=== PATIENT | male | born 1975 ===

== ENCOUNTER 2020-09-14 13:01 | Inpatient (IN) | payer SELFPAY ==
[2020-09-14] MEDS ORDERED: Senokot S 8.6-50 MG TAB PO PRN (17:02)
[2020-09-14] MEDS ORDERED: Guaifenesin DM 100-10/5 ML UDCUP PO PRN (17:02)
[2020-09-14] MEDS ORDERED: Acetaminophen 325 MG TAB PO PRN (17:02)
[2020-09-14] MEDS ORDERED: Ondansetron PF 4 MG/2 ML Vial IVP PRN (17:02)
[2020-09-14] MEDS ORDERED: Pharmacy to Dose REMDESIVIR IVPB PRN (17:03)
[2020-09-14 17:26] VITALS: BMI 43.2
[2020-09-14 19:52] LABS: ALT (SGPT) 48 U/L (8-55); AST (SGOT) 42 U/L (5-34); Albumin 3.8 g/dL (3.5-5.0); Alkaline Phosphatase 82 U/L (40-110); Bilirubin, Direct 0.3 mg/dL (0.1-0.3); Bilirubin, Total 0.6 mg/dL (0.2-1.2); Protein, Total 7.6 g/dL (6.0-8.3)
[2020-09-14] MEDS: Famotidine 20 MG TAB PO SCH (19:59)
[2020-09-14] MEDS: Enoxaparin Sodium 40 MG/0.4 ML SYRINGE SC SCH (20:00)
--- NOTE | 2020-09-14 20:00 | HP ---
CHIEF COMPLAINT: Shortness of breath. HISTORY OF PRESENT ILLNESS: The patient is a 44-year-old male, with no past medical history, who presents to the hospital actually in [place] with worsening shortness of breath. The patient started becoming symptomatic on September 10. He came into the ER today, got tested, was COVID positive. The patient at this time requires 2 to 3 L of nasal cannula. He was noted to be hypoxic at 84% on room air. At this time, due to no beds, he was transferred here for further evaluation. PAST MEDICAL HISTORY: He denies. PAST SURGICAL HISTORY: He denies. MEDICATIONS: Does not take any medications. ALLERGIES: NO KNOWN DRUG ALLERGIES. REVIEW OF SYSTEMS: All negative except for the ones mentioned above in the HPI. FAMILY HISTORY: No history of heart disease or stroke. SOCIAL HISTORY: The patient denies any smoking, any alcohol use, or any drug use. He is a full code. Lives with his , who was also diagnosed with COVID. PHYSICAL EXAMINATION: VITAL SIGNS: Temperature 98.8, heart rate 97, respiratory rate 26, oxygen saturation 98% on 2 L, and blood pressure 122/74. GENERAL: He is awake, alert, and oriented x3. Does not appear in distress. Appears ill, tachypneic. CV: S1 and S2 present. No murmurs, rubs, or gallops. LUNGS: Some crackles to bilateral lower bases. ABDOMEN: Soft and nontender. Bowel sounds are present x2. EXTREMITIES: No edema. Pedal pulses are present x2. NEUROVASCULAR: No focal deficits noted. SKIN: No cuts, lesions, or bruises noted. LABORATORY DATA: He has had a CTA, which is on a disk and I am unable to read it and also had a chest x-ray, which per the ER doctor said, there was infiltrates that were noted. The rest of the labs WBCs of 10.1, hemoglobin of 14.7, hematocrit of 42.5, and his platelets are 319. Sodium of 135, potassium of 3.3, BUN of 7, creatinine of 0.79, and glucose of 209. His AST is 36. His ALT is 42. His albumin is 2.9. ASSESSMENT AND PLAN: The patient is a very pleasant 44-year-old male, who presents to the hospital with shortness of breath. 1. Acute hypoxic respiratory failure, most likely secondary to COVID. I will start the patient on Decadron. He received Decadron in the ER 10 mg. We will start 6 mg. We will also start him on vitamin D, zinc, and vitamin C. We will do p.r.n. albuterol inhaler. We will start the patient on deep venous thrombosis prophylaxis, Lovenox b.i.d. 2. Obesity. The patient educated on diet, exercise, and weight loss. 3. Mild elevated AST. We will continue to monitor. 4. Deep venous thrombosis prophylaxis. The patient on Lovenox. Job ID: [id number]
[2020-09-14] MEDS ORDERED: REMDESIVIR (EUA) 200 MG in Sodium Chloride 0.9% 250 ML 210 ML IV SCH (20:15)
[2020-09-15 05:10] LABS: #Lymphocytes 1.1 thou/uL (1.20-3.40); #Monocytes 0.6 thou/uL (0.11-0.59); #Neutrophils 7.2 thou/uL (1.40-6.50); %Basophils 0.3 % (0.0-1.0); %Eosinophils 0.3 % (0.0-10.0); %Lymphocytes 12.6 % (21.0-51.0); %Monocytes 6.7 % (0.0-10.0); %Neutrophils 80.1 % (42.0-75.0); Hemoglobin 14.3 g/dL (14.0-18.0); Mean Corpuscular HGB CONC 32.6 g/dL (32.0-36.0); Mean Corpuscular Hemoglobin 29.8 pg (27.0-31.0); Mean Corpuscular Volume 91.4 fL (78.0-98.0); Mean Platelet Volume 7.4 fL (7.4-10.4); Platelet Count 377 thou/uL (130-400); RBC Distribution Width 12.4 % (11.5-14.5); Red Blood Cell (RBC) Count 4.82 mill/uL (4.70-6.10)
[2020-09-15 05:43] LABS: ALT (SGPT) 50 U/L (8-55); AST (SGOT) 37 U/L (5-34); Albumin 3.5 g/dL (3.5-5.0); Alkaline Phosphatase 72 U/L (40-110); Anion Gap 13 mmol/L (10-20); BUN (Urea Nitrogen) 12 mg/dL (8.9-20.6); Bilirubin, Total 0.3 mg/dL (0.2-1.2); Calc. Creatinine Clearance 213 mL/min (70-130); Carbon Dioxide 29 mmol/L (22-29); Chloride 99 mmol/L (98-107); Globulin 4.2 g/dL (2.4-3.5); Glucose 257 mg/dL (70-105); Potassium 4.1 mmol/L (3.5-5.1); Protein, Total 7.7 g/dL (6.0-8.3); Sodium 137 mmol/L (136-145)
[2020-09-15] MEDS: Mometasone 100 MCG/Formoterol 5 MCG 120 PUFF INHALER INH SCH ×2 (06:31→17:24)
[2020-09-15] MEDS ORDERED: Dextrose 50% Abboject 50 ML SYRINGE SLOW IVP PRN (07:59)
[2020-09-15] MEDS ORDERED: Dextrose 5% in Water 1,000 ML IV PRN (07:59)
[2020-09-15] MEDS: Enoxaparin Sodium 40 MG/0.4 ML SYRINGE SC SCH ×2 (08:46→21:10)
[2020-09-15] MEDS: Famotidine 20 MG TAB PO SCH ×2 (08:47→21:10)
[2020-09-15] MEDS: Zinc Sulfate 220 MG CAP PO SCH (08:47)
[2020-09-15] MEDS: Cholecalciferol (Vitamin D3) 400 UNITS TAB PO SCH (08:47)
[2020-09-15] MEDS: Ascorbic Acid 500 mg Chewable Tablet PO SCH (08:47)
[2020-09-15] MEDS: Dexamethasone 4 mg/ml Vial SLOW IVP SCH (08:47)
--- NOTE | 2020-09-15 09:04 | RAD ---
PORTABLE CHEST 1 VIEW: Date: 09/15/2020 Time: 0809 hours HISTORY: Shortness of breath. FINDINGS/IMPRESSION: The heart size is normal. The aorta is tortuous. Patchy opacities are seen in the lung sagastume bilater ally. No pneumothoraces or large effusions are noted. IMPRESSION: Findings are suspicious for pneumonia. POS: OFF
[2020-09-15] MEDS: HumaLOG 300 UNITS/3 ML VIAL SC PRN ×3 (13:23→21:43)
[2020-09-15] MEDS: REMDESIVIR (EUA) 100 MG in Sodium Chloride 0.9% 250 ML 230 ML IV SCH (21:10)
--- NOTE | 2020-09-15 22:17 | PDOC.HOSPP ---
- Subjective Encounter Date: 09/15/20 Encounter Time: 15:00 Subjective: Patient up in bed states he feels much better today - Objective Vital Signs & Weight: Vital Signs (12 hours) Temp Pulse Resp BP Pulse Ox 09/15/20 19:40 97.5 F L 89 28 H 109/66 97 09/15/20 16:00 98.4 F 92 30 H 110/64 99 09/15/20 12:00 97.9 F 84 28 H 108/59 L 99 Weight Weight 310 lb I&O: 09/14/20 09/15/20 09/16/20 06:59 06:59 06:59 Intake Total 1057 1080 Output Total 970 675 Balance 87 405 Result Diagrams: 09/15/20 04:46 09/15/20 04:46 Additional Labs: Accuchecks 09/15/20 09/15/20 09/15/20 21:18 16:43 12:30 POC Glucose 248 H 285 H 268 H Hospitalist ROS - Review of Systems Cardiovascular: denies: chest pain, palpitations, orthopnea, paroxysmal noc. dyspnea, edema, light headedness, other Gastrointestinal: denies: nausea, vomiting, abdominal pain, diarrhea, constipation, melena, hematochezia, other Genitourinary: denies: dysuria, frequency, incontinence, hematuria, retention, other - Medication Medications: Active Medications Generic Name Dose Route Start Last Admin Trade Name Freq PRN Reason Stop Dose Admin Acetaminophen 650 mg 09/14/20 17:02 09/15/20 03:14 Acetaminophen 325 Mg Tab PO 650 mg Q8H PRN Administration Headache/Fever/Mild Pain (1-3) Ascorbic Acid 500 mg 09/15/20 09:00 09/15/20 08:47 Ascorbic Acid 500 Mg Chewable Tablet PO 500 mg DAILY SALENA Administration Cholecalciferol 400 units 09/15/20 09:00 09/15/20 08:47 Cholecalciferol (Vitamin D3) 400 Units Tab PO 400 units DAILY SALENA Administration Dexamethasone 6 mg 09/15/20 09:00 09/15/20 08:47 Dexamethasone 4 Mg/Ml Vial SLOW IVP 6 mg DAILY SALENA Administration Enoxaparin Sodium 40 mg 09/14/20 21:00 09/15/20 21:10 Enoxaparin Sodium 40 Mg/0.4 Ml Syringe SC 40 mg BID SALENA Administration Famotidine 20 mg 09/14/20 21:00 09/15/20 21:10 Famotidine 20 Mg Tab PO 20 mg BID SALENA Administration Remdesivir 100 mg/ Sodium 250 mls @ 250 mls/hr 09/15/20 20:00 09/15/20 21:10 Chloride IV 09/18/20 20:59 250 mls 2000 SALENA Administration Insulin Human Lispro 0 units 09/15/20 07:59 09/15/20 17:23 Humalog 300 Units/3 Ml Vial SC 4 unit .MILD SLIDING SCALE PRN Administration Mild Correctional Scale Insulin Human Lispro 0 units 09/15/20 19:20 09/15/20 21:43 Humalog 300 Units/3 Ml Vial SC 2 unit .BEDTIME SLIDING SC PRN Administration Bedtime Correctional Scale Mometasone Furoate/Formoterol Fumar 1 puff 09/15/20 06:30 09/15/20 17:24 Mometasone 100 Mcg/Formoterol 5 Mcg 120 Puff Inhaler INH 1 puff BID-RT SALENA Administration Zinc Sulfate 220 mg 09/15/20 09:00 09/15/20 08:47 Zinc Sulfate 220 Mg Cap PO 220 mg DAILY SALENA Administration - Exam Neck: negative: supple, symmetric, no JVD, no thyromegaly, no lymphadenopathy, no carotid bruit, JVD Heart: negative: RRR, no murmur, no gallops, no rubs, normal peripheral pulses, irregular, diminshed peripheral pulses, murmur present, II/IV, III/IV Respiratory: negative: CTAB, no wheezes, no rales, no ronchi, normal chest expansion, no tachypnea, normal percussion, rales, rhonchi, tachypneic, wheezes Gastrointestinal: negative: soft, non-tender, non-distended, normal bowel sounds, no palpable masses, no hepatomegaly, no splenomegaly, no bruit, no guarding, no rigidity, tender to palpation, distended, diminished bowl sounds, voluntary guarding Hosp A/P (1) Acute respiratory failure with hypoxia Code(s): J96.01 - ACUTE RESPIRATORY FAILURE WITH HYPOXIA Status: Acute (2) COVID-19 Code(s): U07.1 - COVID-19 Status: Acute (3) Obesity Code(s): E66.9 - OBESITY, UNSPECIFIED Status: Acute (4) Sleep apnea Code(s): G47.30 - SLEEP APNEA, UNSPECIFIED Status: Acute - Plan We will continue remdesivir day 2. ID consulted. We will continue steroids, DVT prophylaxis and inhalers. Patient currently on 4 L satting 95-96%. We will continue to check inflammatory markers.
[2020-09-16] MEDS: Mometasone 100 MCG/Formoterol 5 MCG 120 PUFF INHALER INH SCH ×2 (06:11→18:26)
[2020-09-16] MEDS: HumaLOG 300 UNITS/3 ML VIAL SC PRN ×4 (06:20→21:54)
[2020-09-16] MEDS: Cholecalciferol (Vitamin D3) 400 UNITS TAB PO SCH (08:23)
[2020-09-16] MEDS: Ascorbic Acid 500 mg Chewable Tablet PO SCH (08:23)
[2020-09-16] MEDS: Dexamethasone 4 mg/ml Vial SLOW IVP SCH (08:23)
[2020-09-16] MEDS: Famotidine 20 MG TAB PO SCH ×2 (08:25→19:56)
[2020-09-16] MEDS: Enoxaparin Sodium 40 MG/0.4 ML SYRINGE SC SCH ×2 (08:25→19:56)
[2020-09-16] MEDS: Zinc Sulfate 220 MG CAP PO SCH (08:26)
[2020-09-16 11:23] LABS: ALT (SGPT) 51 U/L (8-55); AST (SGOT) 25 U/L (5-34); Albumin 3.5 g/dL (3.5-5.0); Alkaline Phosphatase 67 U/L (40-110); Anion Gap 15 mmol/L (10-20); BUN (Urea Nitrogen) 20 mg/dL (8.9-20.6); Bilirubin, Total 0.3 mg/dL (0.2-1.2); CRP (Inflammatory) 6.53 mg/dL (= or < 0.5); Calc. Creatinine Clearance 202 mL/min (70-130); Calcium 8.7 mg/dL (7.8-10.44); Carbon Dioxide 29 mmol/L (22-29); Chloride 101 mmol/L (98-107); Glucose 323 mg/dL (70-105); Potassium 3.7 mmol/L (3.5-5.1); Protein, Total 7.5 g/dL (6.0-8.3); Sodium 141 mmol/L (136-145)
--- NOTE | 2020-09-16 16:22 | CON ---
DATE OF CONSULTATION: 09/16/2020 REASON FOR CONSULTATION: COVID pneumonia. HISTORY OF PRESENT ILLNESS: A 44-year-old with history of obesity, who has been sick with fever and progressive respiratory symptoms since Thursday, about 7 days since before I saw him. He was admitted at the 5th day of his illness and started on Decadron and remdesivir after he tested positive for COVID. He is feeling better now. He has no headaches, visual symptoms, sore throat, odynophagia, or dysphagia. No anosmia. Some cough. No chest pain or abdominal pain. No diarrhea or genitourinary symptoms. MEDICAL HISTORY: Negative. SURGICAL HISTORY: Negative. ALLERGIES: NONE. CURRENT MEDICATIONS: 1. Vitamin D. 2. Decadron. 3. Lovenox twice a day. 4. Insulin. 5. Remdesivir. FAMILY HISTORY: Noncontributory except for COVID-19, his pretty much around the same time, but she is doing well. He seems to have recovered already. He lives in [place], though had to come here because they have no beds in [place]. PHYSICAL EXAMINATION: VITAL SIGNS: His temperature is normal, blood pressure 120/73, respiratory rate 22, and O2 saturation now is 100% with 3 L. He does not desaturate much after exertion. HEENT: Ocular movements conjugate. Oral cavity normal. LUNGS: Really fairly clear breath sounds. HEART: S1 and S2. Regular rate. ABDOMEN: Soft, not distended or tender. EXTREMITIES: No edema. No joint inflammatory activity. Pulses excellent lower extremities. Moves all extremities equally. LABORATORY STUDIES: Sodium 141, creatinine 0.94. Liver profile; CRP 6.53, transaminases normal, bilirubin normal. Chest x-ray; diffuse bilateral infiltrates, typical of covert 19. ASSESSMENT: Obesity with SARS-CoV-2 pneumonia, moderate to severe. DISCUSSION: The patient going into his 2nd week of illness, so there is an opportunity for deterioration going forward, but hopefully with the Decadron and remdesivir will shorten hospital stay, seems to have turned around pretty quickly and lung sounds very good right now, so guardedly optimistic about his clinical course here in the hospital. Job ID: [id number]
[2020-09-16] MEDS: REMDESIVIR (EUA) 100 MG in Sodium Chloride 0.9% 250 ML 230 ML IV SCH (19:57)
[2020-09-17 05:11] LABS: #Basophils 0.1 thou/uL (0.0-0.2); #Eosinphils 0.1 thou/uL (0.0-0.7); #Lymphocytes 2.7 thou/uL (1.20-3.40); #Monocytes 1.2 thou/uL (0.11-0.59); #Neutrophils 9.1 thou/uL (1.40-6.50); %Basophils 0.4 % (0.0-1.0); %Eosinophils 0.8 % (0.0-10.0); %Lymphocytes 20.4 % (21.0-51.0); %Monocytes 8.9 % (0.0-10.0); %Neutrophils 69.5 % (42.0-75.0); Hemoglobin 14.6 g/dL (14.0-18.0); Mean Corpuscular HGB CONC 33.6 g/dL (32.0-36.0); Mean Corpuscular Hemoglobin 30.9 pg (27.0-31.0); Mean Corpuscular Volume 91.9 fL (78.0-98.0); Mean Platelet Volume 7.4 fL (7.4-10.4); Platelet Count 501 thou/uL (130-400); RBC Distribution Width 12.6 % (11.5-14.5); Red Blood Cell (RBC) Count 4.71 mill/uL (4.70-6.10)
[2020-09-17 05:30] LABS: ALT (SGPT) 50 U/L (8-55); AST (SGOT) 24 U/L (5-34); Albumin 3.2 g/dL (3.5-5.0); Alkaline Phosphatase 63 U/L (40-110); Anion Gap 14 mmol/L (10-20); BUN (Urea Nitrogen) 20 mg/dL (8.9-20.6); Bilirubin, Total 0.3 mg/dL (0.2-1.2); Calc. Creatinine Clearance 223 mL/min (70-130); Calcium 8.4 mg/dL (7.8-10.44); Carbon Dioxide 30 mmol/L (22-29); Chloride 102 mmol/L (98-107); Globulin 3.6 g/dL (2.4-3.5); Glucose 162 mg/dL (70-105); Protein, Total 6.8 g/dL (6.0-8.3); Sodium 142 mmol/L (136-145)
[2020-09-17] MEDS: Mometasone 100 MCG/Formoterol 5 MCG 120 PUFF INHALER INH SCH ×2 (06:22→17:17)
[2020-09-17] MEDS: HumaLOG 300 UNITS/3 ML VIAL SC PRN ×3 (06:22→17:16)
[2020-09-17] MEDS: Enoxaparin Sodium 40 MG/0.4 ML SYRINGE SC SCH ×2 (07:25→21:53)
[2020-09-17] MEDS: Zinc Sulfate 220 MG CAP PO SCH (07:26)
[2020-09-17] MEDS: Dexamethasone 4 mg/ml Vial SLOW IVP SCH (07:26)
[2020-09-17] MEDS: Famotidine 20 MG TAB PO SCH ×2 (07:26→21:53)
[2020-09-17] MEDS: Cholecalciferol (Vitamin D3) 400 UNITS TAB PO SCH (07:26)
[2020-09-17] MEDS: Ascorbic Acid 500 mg Chewable Tablet PO SCH (07:26)
--- NOTE | 2020-09-17 09:03 | PDOC.HOSPP ---
- Subjective Encounter Date: 09/16/20 Encounter Time: 11:45 Subjective: Patient up in bed states he feels much better. - Objective Vital Signs & Weight: Vital Signs (12 hours) Temp Pulse Resp BP BP Pulse Ox 09/17/20 07:16 96.8 F L 79 24 H 114/64 92 L 09/17/20 03:12 97.0 F L 70 16 116/71 96 09/16/20 23:20 97.0 F L 82 18 116/73 100 Weight Weight 310 lb I&O: 09/16/20 09/17/20 09/18/20 06:59 06:59 06:59 Intake Total 1650 1580 Output Total 675 Balance 975 1580 Result Diagrams: 09/17/20 04:49 09/17/20 04:49 Additional Labs: Accuchecks 09/16/20 09/16/20 09/16/20 21:52 16:16 10:44 POC Glucose 221 H 297 H 301 H Hospitalist ROS - Review of Systems Respiratory: denies: cough, dry, shortness of breath, hemoptysis, SOB with excertion, pleuritic pain, sputum, wheezing, other Cardiovascular: denies: chest pain, palpitations, orthopnea, paroxysmal noc. dyspnea, edema, light headedness, other Gastrointestinal: denies: nausea, vomiting, abdominal pain, diarrhea, constipation, melena, hematochezia, other - Medication Medications: Active Medications Generic Name Dose Route Start Last Admin Trade Name Freq PRN Reason Stop Dose Admin Acetaminophen 650 mg 09/14/20 17:02 09/15/20 03:14 Acetaminophen 325 Mg Tab PO 650 mg Q8H PRN Administration Headache/Fever/Mild Pain (1-3) Ascorbic Acid 500 mg 09/15/20 09:00 09/17/20 07:26 Ascorbic Acid 500 Mg Chewable Tablet PO 500 mg DAILY SALENA Administration Cholecalciferol 400 units 09/15/20 09:00 09/17/20 07:26 Cholecalciferol (Vitamin D3) 400 Units Tab PO 400 units DAILY SALENA Administration Dexamethasone 6 mg 09/15/20 09:00 09/17/20 07:26 Dexamethasone 4 Mg/Ml Vial SLOW IVP 6 mg DAILY SALENA Administration Enoxaparin Sodium 40 mg 09/14/20 21:00 09/17/20 07:25 Enoxaparin Sodium 40 Mg/0.4 Ml Syringe SC 40 mg BID SALENA Administration Famotidine 20 mg 09/14/20 21:00 09/17/20 07:26 Famotidine 20 Mg Tab PO 20 mg BID SALENA Administration Remdesivir 100 mg/ Sodium 250 mls @ 250 mls/hr 09/15/20 20:00 09/16/20 19:57 Chloride IV 09/18/20 20:59 250 mls 2000 SALENA Administration Insulin Human Lispro 0 units 09/15/20 07:59 09/17/20 06:22 Humalog 300 Units/3 Ml Vial SC 2 unit .MILD SLIDING SCALE PRN Administration Mild Correctional Scale Insulin Human Lispro 0 units 09/15/20 19:20 09/16/20 21:54 Humalog 300 Units/3 Ml Vial SC 2 unit .BEDTIME SLIDING SC PRN Administration Bedtime Correctional Scale Mometasone Furoate/Formoterol Fumar 1 puff 09/15/20 06:30 09/17/20 06:22 Mometasone 100 Mcg/Formoterol 5 Mcg 120 Puff Inhaler INH 1 puff BID-RT SALENA Administration Zinc Sulfate 220 mg 09/15/20 09:00 09/17/20 07:26 Zinc Sulfate 220 Mg Cap PO 220 mg DAILY SALENA Administration - Exam Neck: negative: supple, symmetric, no JVD, no thyromegaly, no lymphadenopathy, no carotid bruit, JVD Heart: negative: RRR, no murmur, no gallops, no rubs, normal peripheral pulses, irregular, diminshed peripheral pulses, murmur present, II/IV, III/IV Respiratory: negative: CTAB, no wheezes, no rales, no ronchi, normal chest expansion, no tachypnea, normal percussion, rales, rhonchi, tachypneic, wheezes Gastrointestinal: negative: soft, non-tender, non-distended, normal bowel sounds, no palpable masses, no hepatomegaly, no splenomegaly, no bruit, no guar ding, no rigidity, tender to palpation, distended, diminished bowl sounds, voluntary guarding Hosp A/P (1) Acute respiratory failure with hypoxia Code(s): J96.01 - ACUTE RESPIRATORY FAILURE WITH HYPOXIA Status: Acute (2) COVID-19 Code(s): U07.1 - COVID-19 Status: Acute (3) Obesity Code(s): E66.9 - OBESITY, UNSPECIFIED Status: Acute (4) Sleep apnea Code(s): G47.30 - SLEEP APNEA, UNSPECIFIED Status: Acute - Plan We will continue remdesivir day 2. ID consulted. We will continue steroids, DVT prophylaxis and inhalers. Patient currently on 4 L satting 95-96%. We will continue to check inflammatory markers. 09/16 today is day 3 of remdesivir. Patient doing well. We will continue current treatment. Hopefully will start weaning the oxygen down.
--- NOTE | 2020-09-17 16:09 | PDOC.HOSPP ---
- Subjective Encounter Date: 09/17/20 Encounter Time: 10:30 Subjective: pt up in bed no complains - Objective Vital Signs & Weight: Vital Signs (12 hours) Temp Pulse Resp BP Pulse Ox 09/17/20 11:08 97.0 F L 75 22 H 107/67 98 09/17/20 07:16 96.8 F L 79 24 H 114/64 92 L Weight Weight 310 lb I&O: 09/16/20 09/17/20 09/18/20 06:59 06:59 06:59 Intake Total 1650 1580 Output Total 675 Balance 975 1580 Result Diagrams: 09/17/20 04:49 09/17/20 04:49 Additional Labs: Accuchecks 09/17/20 09/16/20 09/16/20 10:42 21:52 16:16 POC Glucose 275 H 221 H 297 H Hospitalist ROS - Review of Systems Cardiovascular: denies: chest pain, palpitations, orthopnea, paroxysmal noc. dyspnea, edema, light headedness, other Gastrointestinal: denies: nausea, vomiting, abdominal pain, diarrhea, constipation, melena, hematochezia, other Genitourinary: denies: dysuria, frequency, incontinence, hematuria, retention, other - Medication Medications: Active Medications Generic Name Dose Route Start Last Admin Trade Name Pinoq PRN Reason Stop Dose Admin Acetaminophen 650 mg 09/14/20 17:02 09/15/20 03:14 Acetaminophen 325 Mg Tab PO 650 mg Q8H PRN Administration Headache/Fever/Mild Pain (1-3) Ascorbic Acid 500 mg 09/15/20 09:00 09/17/20 07:26 Ascorbic Acid 500 Mg Chewable Tablet PO 500 mg DAILY SALENA Administration Cholecalciferol 400 units 09/15/20 09:00 09/17/20 07:26 Cholecalciferol (Vitamin D3) 400 Units Tab PO 400 units DAILY SALENA Administration Dexamethasone 6 mg 09/15/20 09:00 09/17/20 07:26 Dexamethasone 4 Mg/Ml Vial SLOW IVP 6 mg DAILY SALENA Administration Enoxaparin Sodium 40 mg 09/14/20 21:00 09/17/20 07:25 Enoxaparin Sodium 40 Mg/0.4 Ml Syringe SC 40 mg BID SALENA Administration Famotidine 20 mg 09/14/20 21:00 12/14/20 07:26 Famotidine 20 Mg Tab PO 20 mg BID SALENA Administration Remdesivir 100 mg/ Sodium 250 mls @ 250 mls/hr 09/15/20 20:00 09/16/20 19:57 Chloride IV 09/18/20 20:59 250 mls 2000 SALENA Administration Insulin Human Lispro 0 units 09/15/20 07:59 09/17/20 11:31 Humalog 300 Units/3 Ml Vial SC 4 unit .MILD SLIDING SCALE PRN Administration Mild Correctional Scale Insulin Human Lispro 0 units 09/15/20 19:20 09/16/20 21:54 Humalog 300 Units/3 Ml Vial SC 2 unit .BEDTIME SLIDING SC PRN Administration Bedtime Correctional Scale Mometasone Furoate/Formoterol Fumar 1 puff 09/15/20 06:30 09/17/20 06:22 Mometasone 100 Mcg/Formoterol 5 Mcg 120 Puff Inhaler INH 1 puff BID-RT SALENA Administration Zinc Sulfate 220 mg 09/15/20 09:00 09/17/20 07:26 Zinc Sulfate 220 Mg Cap PO 220 mg DAILY SALENA Administration - Exam Neck: negative: supple, symmetric, no JVD, no thyromegaly, no lymphadenopathy, no carotid bruit, JVD Heart: negative: RRR, no murmur, no gallops, no rubs, normal peripheral pulses, irregular, diminshed peripheral pulses, murmur present, II/IV, III/IV Respiratory: negative: CTAB, no wheezes, no rales, no ronchi, normal chest expansion, no tachypnea, normal percussion, rales, rhonchi, tachypneic, wheezes Hosp A/P (1) Acute respiratory failure with hypoxia Code(s): J96.01 - ACUTE RESPIRATORY FAILURE WITH HYPOXIA Status: Acute (2) COVID-19 Code(s): U07.1 - COVID-19 Status: Acute (3) Obesity Code(s): E66.9 - OBESITY, UNSPECIFIED Status: Acute (4) Sleep apnea Code(s): G47.30 - SLEEP APNEA, UNSPECIFIED Status: Acute - Plan We will continue remdesivir day 2. ID consulted. We will continue steroids, DVT prophylaxis and inhalers. Patient currently on 4 L satting 95-96%. We will continue to check inflammatory markers. 09/16 today is day 3 of remdesivir. Patient doing well. We will continue current treatment. Hopefully will start weaning the oxygen down. 09/17 patient up in bed as well. Day 4 of remdesivir. Possible discharge in the next 24 to 48 hours
[2020-09-17] MEDS: REMDESIVIR (EUA) 100 MG in Sodium Chloride 0.9% 250 ML 230 ML IV SCH (21:34)
[2020-09-18 05:59] LABS: Hemoglobin A1c 8.1 % (4.0-6.0)
[2020-09-18] MEDS: Mometasone 100 MCG/Formoterol 5 MCG 120 PUFF INHALER INH SCH ×2 (06:30→17:43)
[2020-09-18] MEDS: Cholecalciferol (Vitamin D3) 400 UNITS TAB PO SCH (07:52)
[2020-09-18] MEDS: Ascorbic Acid 500 mg Chewable Tablet PO SCH (07:52)
[2020-09-18] MEDS: Dexamethasone 4 mg/ml Vial SLOW IVP SCH (07:53)
[2020-09-18] MEDS: Famotidine 20 MG TAB PO SCH ×2 (07:54→20:29)
[2020-09-18] MEDS: Enoxaparin Sodium 40 MG/0.4 ML SYRINGE SC SCH ×2 (07:54→20:29)
[2020-09-18] MEDS: Zinc Sulfate 220 MG CAP PO SCH (07:54)
[2020-09-18] MEDS ORDERED: metFORMIN 500 MG TAB PO SCH (08:30)
[2020-09-18] MEDS: HumaLOG 300 UNITS/3 ML VIAL SC PRN ×2 (12:30→17:44)
--- NOTE | 2020-09-18 12:58 | PDOC.HOSPP ---
- Subjective Encounter Date: 09/18/20 Encounter Time: 11:15 Subjective: pt up in chair feels better today. - Objective Vital Signs & Weight: Vital Signs (12 hours) Temp Pulse Resp BP BP Pulse Ox 09/18/20 11:21 98.8 F 89 20 124/74 98 09/18/20 08:00 97.5 F L 72 20 119/71 93 L 09/18/20 04:11 97.4 F L 74 26 H 120/69 97 09/18/20 03:21 94 L Weight Weight 311 lb 1.6 oz I&O: 09/17/20 09/18/20 09/19/20 06:59 06:59 06:59 Intake Total 1580 1390 Output Total 800 Balance 1580 590 Result Diagrams: 09/17/20 04:49 09/17/20 04:49 Additional Labs: Accuchecks 09/18/20 09/18/20 09/17/20 11:19 06:40 21:25 POC Glucose 224 H 111 H 152 H 09/17/20 16:00 POC Glucose 228 H Hospitalist ROS - Review of Systems Cardiovascular: denies: chest pain, palpitations, orthopnea, paroxysmal noc. dyspnea, edema, light headedness, other Gastrointestinal: denies: nausea, vomiting, abdominal pain, diarrhea, constipation, melena, hematochezia, other Genitourinary: denies: dysuria, frequency, incontinence, hematuria, retention, o ther - Medication Medications: Active Medications Generic Name Dose Route Start Last Admin Trade Name Freq PRN Reason Stop Dose Admin Acetaminophen 650 mg 09/14/20 17:02 09/15/20 03:14 Acetaminophen 325 Mg Tab PO 650 mg Q8H PRN Administration Headache/Fever/Mild Pain (1-3) Ascorbic Acid 500 mg 09/15/20 09:00 09/18/20 07:52 Ascorbic Acid 500 Mg Chewable Tablet PO 500 mg DAILY SALENA Administration Cholecalciferol 400 units 09/15/20 09:00 09/18/20 07:52 Cholecalciferol (Vitamin D3) 400 Units Tab PO 400 units DAILY SALENA Administration Dexamethasone 6 mg 09/15/20 09:00 09/18/20 07:53 Dexamethasone 4 Mg/Ml Vial SLOW IVP 6 mg DAILY SALENA Administration Enoxaparin Sodium 40 mg 09/14/20 21:00 09/18/20 07:54 Enoxaparin Sodium 40 Mg/0.4 Ml Syringe SC 40 mg BID SALENA Administration Famotidine 20 mg 09/14/20 21:00 09/18/20 07:54 Famotidine 20 Mg Tab PO 20 mg BID SALENA Administration Remdesivir 100 mg/ Sodium 250 mls @ 250 mls/hr 09/15/20 20:00 09/17/20 21:34 Chloride IV 09/18/20 20:59 250 mls 2000 SALENA Administration Insulin Human Lispro 0 units 09/15/20 07:59 09/18/20 12:30 Humalog 300 Units/3 Ml Vial SC 3 unit .MILD SLIDING SCALE PRN Administration Mild Correctional Scale Insulin Human Lispro 0 units 09/15/20 19:20 09/16/20 21:54 Humalog 300 Units/3 Ml Vial SC 2 unit .BEDTIME SLIDING SC PRN Administration Bedtime Correctional Scale Mometasone Furoate/Formoterol Fumar 1 puff 09/15/20 06:30 09/18/20 06:30 Mometasone 100 Mcg/Formoterol 5 Mcg 120 Puff Inhaler INH 1 puff BID-RT SALENA Administration Zinc Sulfate 220 mg 09/15/20 09:00 09/18/20 07:54 Zinc Sulfate 220 Mg Cap PO 220 mg DAILY SALENA Administration - Exam Neck: negative: supple, symmetric, no JVD, no thyromegaly, no lymphadenopathy, no carotid bruit, JVD Heart: negative: RRR, no murmur, no gallops, no rubs, normal peripheral pulses, irregular, diminshed peripheral pulses, murmur present, II/IV, III/IV Respiratory: negative: CTAB, no wheezes, no rales, no ronchi, normal chest expansion, no tachypnea, normal percussion, rales, rhonchi, tachypneic, wheezes Gastrointestinal: negative: soft, non-tender, non-distended, normal bowel sounds, no palpable masses, no hepatomegaly, no splenomegaly, no bruit, no guarding, no rigidity, tender to palpation, distended, diminished bowl sounds, voluntary guarding Hosp A/P (1) Acute respiratory failure with hypoxia Code(s): J96.01 - ACUTE RESPIRATORY FAILURE WITH HYPOXIA Status: Acute (2) COVID-19 Code(s): U07.1 - COVID-19 Status: Acute (3) Obesity Code(s): E66.9 - OBESITY, UNSPECIFIED Status: Acute (4) Sleep apnea Code(s): G47.30 - SLEEP APNEA, UNSPECIFIED Status: Acute - Plan We will continue remdesivir day 2. ID consulted. We will continue steroids, DVT prophylaxis and inhalers. Patient currently on 4 L satting 95-96%. We will continue to check inflammatory markers. 09/16 today is day 3 of remdesivir. Patient doing well. We will continue current treatment. Hopefully will start weaning the oxygen down. 09/17 patient up in bed as well. Day 4 of remdesivir. Possible discharge in the next 24 to 48 hours 09/18 pt will get his 5th dose of remdesivir. will check labs in am if he does well, will discharge in am.
[2020-09-18] MEDS: REMDESIVIR (EUA) 100 MG in Sodium Chloride 0.9% 250 ML 230 ML IV SCH (20:48)
[2020-09-19 05:06] LABS: ALT (SGPT) 82 U/L (8-55); AST (SGOT) 28 U/L (5-34); Albumin 3.3 g/dL (3.5-5.0); Alkaline Phosphatase 71 U/L (40-110); Anion Gap 13 mmol/L (10-20); BUN (Urea Nitrogen) 18 mg/dL (8.9-20.6); Bilirubin, Total 0.5 mg/dL (0.2-1.2); Calc. Creatinine Clearance 194 mL/min (70-130); Calcium 8.3 mg/dL (7.8-10.44); Carbon Dioxide 29 mmol/L (22-29); Chloride 100 mmol/L (98-107); Globulin 3.5 g/dL (2.4-3.5); Glucose 154 mg/dL (70-105); Potassium 4.4 mmol/L (3.5-5.1); Protein, Total 6.8 g/dL (6.0-8.3); Sodium 138 mmol/L (136-145)
[2020-09-19 05:41] LABS: Hemoglobin 14.7 g/dL (14.0-18.0); Mean Corpuscular HGB CONC 32.5 g/dL (32.0-36.0); Mean Corpuscular Hemoglobin 29.7 pg (27.0-31.0); Mean Corpuscular Volume 91.7 fL (78.0-98.0); Mean Platelet Volume 7.1 fL (7.4-10.4); Platelet Count 593 thou/uL (130-400); RBC Distribution Width 12.7 % (11.5-14.5); Red Blood Cell (RBC) Count 4.93 mill/uL (4.70-6.10); White Blood Cell (WBC) Count 16.8 thou/uL (4.8-10.8)
[2020-09-19 05:42] LABS: Band 3 % (5-11); Eosinophils 1 % (0-10); Lymphocytes 9 % (21-51); MDiff Complete? YES; Monocytes 1 % (0-10); Neutrophil 62 % (42-75); Platelet Morphology Comment Appears Increased; RBC Morphology Normal; Reactive Lymphocytes 24 % (0-10)
[2020-09-19] MEDS: Mometasone 100 MCG/Formoterol 5 MCG 120 PUFF INHALER INH SCH (06:35)
[2020-09-19] MEDS: Dexamethasone 4 mg/ml Vial SLOW IVP SCH (07:47)
[2020-09-19] MEDS: Famotidine 20 MG TAB PO SCH (07:48)
[2020-09-19] MEDS: Cholecalciferol (Vitamin D3) 400 UNITS TAB PO SCH (07:48)
[2020-09-19] MEDS: Enoxaparin Sodium 40 MG/0.4 ML SYRINGE SC SCH (07:48)
[2020-09-19] MEDS: Ascorbic Acid 500 mg Chewable Tablet PO SCH (07:48)
[2020-09-19] MEDS: Zinc Sulfate 220 MG CAP PO SCH (07:49)
[2020-09-19] MEDS ORDERED: metFORMIN 500 MG TAB PO SCH (08:00)
[2020-09-19] MEDS: HumaLOG 300 UNITS/3 ML VIAL SC PRN (11:49)
[2020-09-19 12:16] VITALS: BP 114/61; TEMP 97.7
--- NOTE | 2020-09-19 16:05 | PDOC.DS.DS ---
Provider - Provider Date of Admission: 09/14/20 16:50 Date of Discharge: 09/19/20 Admitting Provider: Camila Coronel MD Consultations: Infectious Disease Primary Care Physician: Unknown Course - Hospital Course Hospital Course: Is a very pleasant 44-year-old male who initially presented to the hospital for shortness of breath. He was noted to be Covid positive. He was given remdesivir. He was seen by infectious disease. He was put on steroids. Patient continued to improve the hospital stay. He will be discharged home and follow-up with his primary care. Home oxygen has been arranged for the patient. He was noted to have some mild leukocytosis no fever we will start him on some doxycycline for 5 days. Resuscitation Status: 09/14/20 17:02 Resuscitation Status Routine Resuscitation Status: FULL: Full Resuscitation - Labs Lab Results: 09/19/20 04:21 09/19/20 04:21 Abnormal Lab Results - Last 48 hrs 09/18/20 05:02: Hemoglobin A1c 8.1 H 09/18/20 08:59: C-Reactive Protein 1.61 H 09/19/20 04:21: ALT 82 H, Albumin 3.3 L, Albumin/Globulin Ratio 0.9 L 09/19/20 04:21: WBC 16.8 H, Plt Count 593 H, MPV 7.1 L, Band Neuts % (Manual) 3 L, Lymphocytes % (Manual) 9 L, Reactive Lymphs % 24 H, Plt Morphology Comment Appears Increased H - Physical Exam Vitals: Vital Signs (12 hours) Temp Pulse Resp BP BP Pulse Ox 09/19/20 11:26 97.7 F 87 18 114/61 98 09/19/20 08:00 97.6 F 67 20 106/56 L 95 Weight Weight 311 lb 1.6 oz Physical Exam: The patient was seen and examined on the day of discharge. Problem - Problem (1) Acute respiratory failure with hypoxia Code(s): J96.01 - ACUTE RESPIRATORY FAILURE WITH HYPOXIA Status: Acute (2) COVID-19 Code(s): U07.1 - COVID-19 Status: Acute (3) Obesity Code(s): E66.9 - OBESITY, UNSPECIFIED Status: Acute (4) Sleep apnea Code(s): G47.30 - SLEEP APNEA, UNSPECIFIED Status: Acute Plan - Discharge Medications Prescriptions: Aspirin 325 mg PO DAILY #14 tab Dexamethasone [Decadron] 6 mg PO DAILY #5 tablet Mometasone/Formoterol 100/5 [Dulera 100 Mcg/5 Mcg Inhaler] 1 puff INH BID-RT #1 inh metFORMIN [Glucophage] 500 mg PO QAM-WM #60 tab Doxycycline [Vibramycin] 100 mg PO Q12HR #10 cap Cholecalciferol (Vitamin D3) [Vitamin D3] 400 units PO DAILY #30 tab Home Medications: Medication Instructions Recorded Confirmed Type Aspirin 325 mg PO DAILY #14 tab 09/19/20 Rx Cholecalciferol (Vitamin D3) 400 units PO DAILY #30 tab 09/19/20 Rx [Vitamin D3] Dexamethasone [Decadron] 6 mg PO DAILY #5 tablet 09/19/20 Rx Doxycycline [Vibramycin] 100 mg PO Q12HR #10 cap 09/19/20 Rx Mometasone/Formoterol 100/5 1 puff INH BID-RT #1 inh 09/19/20 Rx [Dulera 100 Mcg/5 Mcg Inhaler] metFORMIN [Glucophage] 500 mg PO QAM-WM #60 tab 09/19/20 Rx Allergies: No Known Allergies Allergy (Unverified 09/14/20 16:57) - Discharge Instructions Discharge Instructions:: please take steroids with food Activity:: Activity as Tolerated Nourishment:: Heart Healthy Diet - Follow up Plan Referrals: Unknown,Unknown [Primary Care Provider] - Disposition: HOME Quality - Care Measures CORE MEASURES:: N/A
== END 2020-09-19 15:09 | disposition home or self-care (01) | DRG 177 ==
LOC: 2SW 16:50
PROVIDERS: ADMIT Internal Medicine; ATTEND Internal Medicine
PROC: XW033E5 Introduction of Remdesivir Anti-infective into Peripheral Vein, Percutaneous Approach, New Technology Group 5 (ICD-10-PCS; principal; 2020-09-14)
DX: U07.1 COVID-19 (principal); J96.01 Acute respiratory failure with hypoxia; Z68.41 Body mass index [BMI] 40.0-44.9, adult; E66.9 Obesity, unspecified; G47.30 Sleep apnea, unspecified
CPT/HCPCS: 36415; 36416; 71045; 80053; 80076; 82728; 83036; 85025; 85379; 86140; 94660; J1100; J1650; J7050